=== PATIENT | male | born 1945 ===

== ENCOUNTER 2024-07-01 10:04 | Outpatient (AMB) | payer OTHER, SELFPAY ==
--- NOTE | 2024-07-01 11:06 | AM.OFFWIN_ITS ---
Intake Vital Signs 07/01/24 11:10 Height 5 ft 4 in Weight 172 lb BMI 29.5 BP 210/100 H Blood Pressure Location Lt brachial Position Sitting Pulse 88 Pulse Source Pulse Oximeter Pulse Oximetry (%) 98 Oxygen Delivery Method Room Air Intake Visit Reasons: [employer] Open sore on RT leg Intake Note: Patient here for open wound on right leg, possibly celulitis of both legs Patient Tobacco Use Status: Current everyday Tobacco user Allergies cephalexin Adverse Reaction (Intermediate, Verified 07/01/24 11:12) headaches Do you need a note to return to daycare/school/sports/work: No HPI HPI Comments History of Present Illness Details Patient is a 78-year-old male here with his complaining of what he thinks is a cellulitis on both of his lower legs. He tells me he has had a wound on the back of his right leg for several weeks and he thinks that is where it started from. He tells me his legs are red and warm. He tells me his legs are always swollen, he tells me he is not on Lasix. Him in his explained to me that he does not have a primary care doctor, he has never taken Lasix or how to problem with his blood pressure, he does not know if he has ever had an echocardiogram. He denies any headaches, lightheadedness or chest pain. He tells me he sometimes gets dizzy but he thinks it is because his eyes are dry. He is also a smoker. [facility] Social History Patient Tobacco Use Status: Current everyday Tobacco user Review of Systems Const All systems reviewed & are unremarkable except as noted in HPI and below Physical Exam Vital Signs: Last Vital Signs Pulse 88 07/01/24 11:10 Pulse Ox 98 07/01/24 11:10 Oxygen Delivery Method Room Air 07/01/24 11:10 BMI result Body Mass Index 29.5 Const General: cooperative, healthy appearing, comfortable, no acute distress and well developed Orientation/consciousness: patient oriented x3 Limitations: ambulation with cane HEENT Head: Yes normal to inspection Ears: hearing grossly normal bilaterally General nose exam: Normal external nose present Face and sinus: Yes normal facial exam Eyes General: appearance normal, both eyes and all related structures Neck Neck: Yes normal visual inspection and Yes full ROM Resp Effort & Inspection: normal respiratory effort and able to speak in complete sentences Auscultation: clear to auscultation bilaterally Cardio Rate: regular rate Rhythm: regular rhythm Heart sounds: normal S1 and S2 GI Inspection: Yes normal to inspection Palpation (GI): Soft to palpation and nontender Skin General skin exam: no rashes or lesions noted Neuro General: patient oriented x3 Extrem Other: bilateral lower extremities 2+ pitting edema with lower erythema and warmth, right leg has a 3cm x 4cm wound on the posterior lower calf which has granulation tissue with some blood (not actively bleeding). Assessment & Plan Assessment & Plan (1) Hypertensive emergency: Code(s): I16.1 - Hypertensive emergency Plan: Rechecked patient's blood pressure after he sat for awhile and it was still elevated. His lung sounds were clear and he tells me he never gets short of breath. However, he is clearly retaining fluid in his legs and should clearly go to the emergency department. We did discuss the risks and benefits of such an elevated blood pressure, being a smoker and not going to the emergency department for treatment. Patient should also establish care with a primary care doctor so he can get a thorough evaluation with labs and an echocardiogram to determine if he does have an element of heart failure so he can be put on the proper medications. I highly recommended patient go to the emergency department so they can lower his blood pressure slowly and safely. He declined, he signed a form stating that he was going against medical advice and not going to the emergency department. I did call the [facility] emergency department with an expect in case he changes his mind and decides to go later today. (2) Cellulitis: Code(s): L03.90 - Cellulitis, unspecified Qualifiers: Laterality: right Site of cellulitis: extremity Site of cellulitis of extremity: lower extremity Qualified Code(s): L03.115 - Cellulitis of right lower limb Plan: Sent an antibiotic to patient's pharmacy. Recommended he follow up with wound care for the wound on his right lower extremity. Plan see above Medications: New doxycycline hyclate 100 mg PO BID 14 tabs 0RF Coding Level of Care Code New Pt Level 5 (43375) Diagnoses Hypertensive emergency I16.1 Cellulitis of right lower extremity L03.115 Laterality: right Site of cellulitis: extremity Site of cellulitis of extremity: lower extremity
[2024-07-01 11:10] VITALS: BP 210/100; PULSE 88; O2SAT 98; BMI 29.5
== END 2024-07-01 11:52 | disposition home or self-care (01) ==
PROVIDERS: Visit Provider Physician Assistant
DX: I16.1 Hypertensive emergency (principal); L03.115 Cellulitis of right lower limb

== ENCOUNTER → 2024-07-01 10:04 | Outpatient (BNVA) | payer OTHER, SELFPAY | PROVIDERS: Visit Provider Physician Assistant ==

== ENCOUNTER 2024-07-01 13:24 | Emergency (ER) | payer OTHER, SELFPAY ==
--- NOTE | ~2024-07-01 | XR_ITS ---
EXAMINATION: XR CHEST 2 VIEW CLINICAL INFORMATION: Shortness of breath COMPARISON: None TECHNIQUE: PA and lateral views of the chest obtained. FINDINGS: The lungs are hyperinflated with lucency in the upper lung zones and retrosternal airspace and flattening diaphragms indicative of COPD. There are no pleural effusions. The cardiomediastinal silhouette is not enlarged. XR/XR chest 2V IMPRESSION: COPD. Electronically signed by: Tony Kirkland MD 07/01/2024 04:23 PM [facility]
[2024-07-01 13:38] VITALS: BP 209/108; PULSE 92; RESP 18; TEMP 36.5; O2SAT 97; BMI 29.4
--- NOTE | 2024-07-01 13:42 | ECG_ITS ---
Test Reason : high bp Blood Pressure : / mmHG Vent. Rate : 088 BPM Atrial Rate : 088 BPM P-R Int : 190 ms QRS Dur : 114 ms QT Int : 366 ms P-R-T Axes : 051 -17 072 degrees QTc Int : 442 ms Normal sinus rhythm Moderate voltage criteria for LVH, may be normal variant ( Sokolow-Warner , [place] product ) Nonspecific ST abnormality Abnormal ECG No previous ECGs available Referred By: Generic ED Physician Electronically Signed By:DANNIELLE TORRES MD
[2024-07-01 14:10] LABS: Basophils Absolute Auto 0.1 X10*3/uL (0.0-0.2); Basophils Percent Auto 0.6 % (0-2); Eosinophils Percent Auto 0.5 % (0-4); Hematocrit 38.3 % (42.0-52.0); Hemoglobin 13.1 g/dl (14.0-18.0); Imm Gran Abs Auto 0.02 X10*3/uL (0.00-0.03); Imm Gran Pct Auto 0.2 % (0.0-0.4); Lymphocytes Absolute Auto 1.1 X10*3/uL (1.2-4.9); Lymphocytes Percent Auto 13.5 % (20-40); MANUAL DIFF FLAG NO; Mean Corpuscular HGB Conc 34.2 g/dl (31.0-36.0); Mean Corpuscular Volume 99.5 fL (80.0-98.0); Monocytes Absolute Auto 0.5 X10*3/uL (0.1-1.2); Monocytes Percent Auto 6.6 % (2-11); Neutrophils Absolute Auto 6.4 x10*3/uL (2.0-8.3); Neutrophils Percent Auto 78.6 % (45-73); Platelet Count 292 X10*3/uL (160-400); Red Blood Count 3.85 X10*6/uL (4.60-5.80); Red Cell Distribution Width 12.9 % (11.0-16.0); White Blood Count 8.1 X10*3/uL (4.8-10.8)
[2024-07-01 14:24] LABS: Alanine Aminotransferase 12 U/L (0-40); Albumin Level 3.9 g/dL (3.5-5.0); Alkaline Phosphatase 117 U/L (39-117); Anion Gap 14 (12-20); Aspartate Amino Transferase 21 U/L (5-37); Bilirubin Total 0.3 mg/dL (0.0-1.0); Blood Urea Nitrogen 7 mg/dL (9-16); Calcium 9.2 mg/dL (8.4-10.2); Carbon Dioxide 27 mmol/L (22-29); Chloride 101 mmol/L (96-108); Creatinine Clr Calc Pharmacy 78.9; Estimated Glomerular Filt Rate > 60; Glucose Random 160 mg/dL (60-115); Potassium 3.5 mmol/L (3.3-5.1); Sodium 138 mmol/L (135-145); Total Protein 7.5 g/dL (6.5-8.0)
--- NOTE | 2024-07-01 15:06 | ED_ITS ---
HPI - General Adult General Chief complaint: General Medical Stated complaint: high BP Time Seen by Provider: 07/01/24 15:06 Source: patient and family Mode of arrival: ambulatory Limitations: no limitations History of Present Illness ED Provider: Kwame VARELA narrative: Patient is a 78-year-old male with history of smoking, does not have a PCP, has not seen a doctor in 40+ years presenting to the ED from [facility] clinic with concern for right lower leg infection and high blood pressure reading. Patient denies any known history of HTN. He denies chest pain, dyspnea, palpitations. He denies headache, blurred vision, double vision or other visual changes. He states that his primary concern is his right lower leg. He reports wound to lateral aspect of right lower leg for the past month, occasional serous drainage. Denies fevers, chills, body aches. Prescription for doxycycline sent by [facility] provider. complaint: leg wound Onset (ago): month(s) Location: right and lower extremity Treatments prior to arrival: none Related Data Previous Rx's ?Medication ?Instructions ?Recorded doxycycline hyclate 100 mg tablet 100 mg PO BID #14 tabs 07/01/24 lisinopril 10 mg tablet 10 mg PO DAILY #30 tabs 07/01/24 Allergies Allergy/AdvReac Type Severity Reaction Status Date / Time cephalexin AdvReac Intermediate headaches Verified 07/01/24 13:40 Review of Systems 2 Review of Systems: As per HPI. Yes all other systems are reviewed and are negative Constitutional: Constitutional: Reports as per HPI [facility] Social History Social History Patient Tobacco Use Status: Current everyday Tobacco user Advance Directives: No Advance Directives Information Provided: Yes Do you have a plan to hurt others: No Plan Physical Exam ED Vital Signs: Vital Signs - 24 hr 07/01/24 13:38 07/01/24 15:13 07/01/24 15:41 Temperature 97.7 F Pulse Rate 92 77 Respiratory Rate 18 16 Blood Pressure 209/108 H 188/92 H 193/97 H Pulse Oximetry 97 97 Oxygen Delivery Method Room Air Room Air BMI result Body Mass Index 29.4 Vital signs have been reviewed and appear to be correct. Blood pressure hypertensive. Heart rate normal. Respiratory rate normal. Temperature normal. Oxygen saturation normal. Const General: cooperative, healthy appearing and no acute distress Orientation/consciousness: oriented to person, oriented to place, oriented to time and patient oriented x3 Limitations: no limitations HENMT Head: Yes normocephalic and Yes atraumatic Ears: external ears normal General nose exam: Normal external nose present Face and sinus: Yes face symmetric Mouth: oropharynx normal and moist mucous membranes Throat: Yes uvula midline Eyes Pupils: Equal, round and reactive pupils present Neck Neck: Yes normal visual inspection and Yes supple Resp Effort & Inspection: normal respiratory effort and able to speak in complete sentences Auscultation: clear to auscultation bilaterally Cardio Rate: regular rate Rhythm: regular rhythm Heart sounds: S1 normal heart sound present and S2 normal heart sound present GI Palpation (GI): Soft to palpation and nontender Auscultation: normoactive bowel sounds General: Yes no CVA tenderness Back/Spine/Pelvis Back: no CVA tenderness Skin General skin exam: elasticity normal and turgor normal Neuro General: oriented to person, oriented to place, oriented to time, patient oriented x3, moves all extremities, no focal motor deficits and CN's II-XI intact bilaterally Cranial nerves: Yes Equal, round and reactive pupils present Cognition (Neuro): normal cognition Extrem Other: General: Yes full ROM and Yes no calf tenderness Right lower extremity: lower leg Details: erythema Location: of the mid lower leg Location: anterolaterally, pitting edema Details: 2+ and other (wound lateral/distal); no tenderness and no unusual warmth Left lower extremity: lower leg Details: erythema Location: of the mid lower leg Location: anterolaterally and pitting edema Details: 2+; no tenderness and no unusual warmth Ankle/foot/toe images: 2 1. wound draining serous fluid, see photo Psych Mental Status: mental status grossly normal Affect: normal affect Thought process: Normal thought process present Medications Administered Discontinued Medications Generic Name Dose Route Start Last Admin Trade Name Freq PRN Reason Stop Dose Admin Lisinopril 10 mg 07/01/24 15:16 07/01/24 15:41 Lisinopril 10 Mg Tablet PO 07/01/24 15:17 10 mg ONCE ONE Administration Protocol Medical Decision Making Medical Decision Making MDM Narrative: Patient is a 78-year-old male with history of smoking, does not have a PCP, has not seen a doctor in 40+ years presenting to the ED from [facility] clinic with concern for right lower leg infection and high blood pressure reading. On exam patient is awake, A+Ox3, hypertensive, VS otherwise WNL, afebrile, normal neurological exam without focal deficits, physical exam findings as above. Given reported symptoms and physical exam findings, initial differential includes cellulitis, venous stasis dermatitis, asymptomatic hypertension. Labs notable for no leukocytosis, no TONY, no significant electrolyte abnormalities, BNP mildly elevated, troponin slightly elevated, patient is without chest pain. EKG shows NSR. Patient signed out to [facility] Lozada pending results of CXR. Assuming no significant findings on x-ray, patient likely stable for discharge home. Will send prescription for lisinopril. Stressed the importance of following up and establishing a PCP. Differential Diagnosis Differential Diagnoses: The differential diagnosis associated with the presentation includes As per [facility] Admission/Observation Consideration of admission/observation: Escalation of care including admission/observation considered Patient would have been admitted to the hospital had their work up had any findings where hospital admission was appropriate and their clinical presentation warranted hospital admission. Lab Data [facility] Lab Attestation statement: I reviewed the patient's lab results. As per [facility] 07/01/24 13:56 07/01/24 13:56 Labs: Lab Results 07/01/24 07/01/24 Range/Units 13:56 15:25 WBC 8.1 (4.8-10.8) X10*3/uL RBC 3.85 L (4.60-5.80) X10*6/uL Hgb 13.1 L (14.0-18.0) g/dl Hct 38.3 L (42.0-52.0) % MCV 99.5 H (80.0-98.0) fL MCH 34.0 H (27.0-33.0) pg MCHC 34.2 (31.0-36.0) g/dl RDW 12.9 (11.0-16.0) % Plt Count 292 (160-400) X10*3/uL MPV 10.0 (9.4-12.4) fL Immature Gran % (Auto) 0.2 (0.0-0.4) % Neut % (Auto) 78.6 H (45-73) % Lymph % (Auto) 13.5 L (20-40) % [place] % (Auto) 6.6 (2-11) % Eos % (Auto) 0.5 (0-4) % Baso % (Auto) 0.6 (0-2) % Lymph # (Auto) 1.1 L (1.2-4.9) X10*3/uL [place] # (Auto) 0.5 (0.1-1.2) X10*3/uL Eos # (Auto) 0.0 (0.0-0.4) X10*3/uL Baso # (Auto) 0.1 (0.0-0.2) X10*3/uL Abs Immat Gran (auto) 0.02 (0.00-0.03) X10*3/uL Absolute Neuts (auto) 6.4 (2.0-8.3) x10*3/uL Absolute Nucleated RBC 0.000 (0.0-0.012) X10*3/uL Nucleated RBC % (auto) 0.0 (0.0-0.2) /100WBC PT 12.5 H (10.9-12.4) SEC INR 1.1 (0.9-1.1) Sodium 138 (135-145) mmol/L Potassium 3.5 (3.3-5.1) mmol/L Chloride 101 (96-108) mmol/L Carbon Dioxide 27 (22-29) mmol/L Anion Gap 14 (12-20) BUN 7 L (9-16) mg/dL Creatinine 0.75 (0.5-1.4) mg/dL Estim Creat Clear Calc 78.9 Estimated GFR > 60 Random Glucose 160 H (60-115) mg/dL Calcium 9.2 (8.4-10.2) mg/dL Magnesium 2.0 (1.6-2.6) mg/dL Total Bilirubin 0.3 (0.0-1.0) mg/dL AST 21 (5-37) U/L ALT 12 (0-40) U/L Alkaline Phosphatase 117 (39-117) U/L Total Protein 7.5 (6.5-8.0) g/dL Albumin 3.9 (3.5-5.0) g/dL Independent Interpretation I performed an independent interpretation of an: EKG (normal sinus rhythm, rate 88bpm, normal CT interval and QTc) External Record Review External record reviewed: Inpatient record, Office record and Outpatient record Prescription Management I considered prescription management with: Antibiotic (already sent to pharmacy by [facility] provider) and Other Chronic Conditions Patient?s care impacted by: Hypertension Discharge Plan Discharge Clinical Impression: Hypertension, Venous stasis dermatitis of both lower extremities, Cellulitis of right lower leg Patient Disposition: Still a Patient Instructions: Cellulitis (DC), How to Take a Blood Pressure (ED), Hypertension (ED), Hypertension in the Older Adult (ED) Additional Instructions: You were evaluated in the emergency department today for a leg wound and elevated blood pressure readings. A prescription for antibiotics to treat your leg infection (also known as cellulitis) was sent to the pharmacy by the [facility] clinic provider. Take those as prescribed until the full course is completed. Assess your leg daily and return if you develop new redness, swelling, thick yellow drainage, or fevers. You are also being discharged on a blood pressure medication called lisinopril. It is important that you establish care with a primary care provider as this medication may need to be adjusted/changed. Do not abruptly stop this medication. You can follow up with the [facility] clinic for a blood pressure check/refill of this medication while you are waiting to find a PCP. Return to the emergency department if you develop chest pain, palpitations, shortness of breath, fever, severe headache, vision changes, confusion or any other concerning symptoms. Prescriptions: New lisinopril 10 mg tablet 10 mg PO DAILY Qty: 30 0RF No Action doxycycline hyclate 100 mg tablet 100 mg PO BID Qty: 14 0RF Referrals: [facility] [Provider Group] [facility] [place] [Provider Group] [facility] [Provider Group] [facility] [Provider Group] Print Language: Amharic
[2024-07-01 15:13] VITALS: BP 188/92; PULSE 77; RESP 16; O2SAT 97
[2024-07-01 15:40] LABS: INTERNATIONAL NORM RATIO 1.1 (0.9-1.1); Prothrombin Time 12.5 SEC (10.9-12.4)
[2024-07-01 15:41] VITALS: BP 193/97
[2024-07-01] MEDS: lisinopriL 10 MG TABLET PO (15:41)
[2024-07-01 15:56] LABS: B Type Natriuretic Peptide 218 pg/mL (<100); Troponin-I High Sensitivity 9.5 ng/L (<3.5-35.0)
[2024-07-01 16:22] LABS: Influenza A PCR NEGATIVE (Negative); Influenza B PCR NEGATIVE (Negative); Resp Syncy Virus RNA Qual PCR NEGATIVE (Negative); SARS COV2 PCR INHOUSE NEGATIVE (Negative)
[2024-07-01 17:34] VITALS: BP 193/97; PULSE 85; RESP 16; TEMP 37; O2SAT 98
== END 2024-07-01 17:35 | disposition still patient (30) ==
PROVIDERS: Registered Nurse Emergency; Emergency Provider Emergency Medicine
DX: I10 Essential (primary) hypertension (principal); L03.115 Cellulitis of right lower limb; I87.2 Venous insufficiency (chronic) (peripheral); R60.0 Localized edema; Z03.818 Encounter for observation for suspected exposure to other biological agents ruled out; R06.02 Shortness of breath; J44.9 Chronic obstructive pulmonary disease, unspecified; F17.200 Nicotine dependence, unspecified, uncomplicated
CPT/HCPCS: 0241U; 36415; 71046; 80053; 83735; 83880; 84484; 85025; 85610; 93005; 99283; 99284

== ENCOUNTER → 2024-07-01 13:42 | Outpatient (BNV) | payer OTHER, SELFPAY | PROVIDERS: Emergency Provider Emergency Medicine; Visit Provider Internal Medicine Cardiovascular Disease | DX: R94.31 Abnormal electrocardiogram [ECG] [EKG] (principal) | CPT/HCPCS: 93010 ==